=== PATIENT | female | born 1980 | race Caucasian/White ===

== ENCOUNTER 2017-01-17 08:48 | Emergency (ER) | payer OTHER ==
[~2017-01-17] VITALS: Ht 162.5 cm; Wt 59.0 kg
[~2017-01-17 08:48] MED LIST: ADVAIR DISKUS 11 DSK INH; AMOXICILLIN500 M2 PO; AMOXICILLIN500 MG PO; ANAPROX DS550 MG PO; ATARAX,VISTARIL50 MG PO; AUGMENTIN 875 M1 TAB PO; AUGMENTIN 875875 MG PO; BACTRIM DS 8001 TA1 PO; CARBIDOPA/LEVOD1 TA1 PO; CEPHALEXIN500 MG PO; CIPRO500 MG PO; CIPROFLOXACIN500 MG PO; CLARITIN10 MG PO; DARVOCET N 1001 TAB PO; DAYPRO600 M1 PO; DIFLUCAN150 MG PO; FLEXERIL10 MG PO; FLOMAX0.4 MG PO; FLONASE 0.05% 121 EA NAS; HYDROCODONE BIT1 T11 PO; KEFLEX500 MG PO; KENALOG 0.025%15 GM PO; MOTRIN800 MG PO; NAPROSYN250 MG; NAPROSYN500 MG PO; NKHM; NO DAILY MEDS; NORFLEX100 MG PO; PERCOCET 325 MG1 TA2 PO; PERCOCET 325 MG1 TA5 PO; PREDNICOT20 MG PO; PRILOSEC10 MG; PRILOSEC20 M1 PO; PROAIR HFA0.09 MG/AC INH; PROVENTIL0.09 MG/AC IH; PYRIDIUM200 MG PO; ROBAXIN750 MG PO; SYMBICORT1 AE1 INH; ULTRAM50 MG PO; VENTOLIN H0.09 MG/AC INH; VIBRA-TAB100 MG PO; VICODIN 5/500 505 MG; VICODIN 5/500 505 MG PO; VICODIN 500 MG-1 TAB PO; ZOFRAN ODT4 MG SL; ZOFRAN4 MG PO; ZYRTEC10 M2 PO
[2017-01-17 09:09] VITALS: BP 115/72
== END 2017-01-17 11:03 | disposition home or self-care (01) ==
LOC: ED 08:48
DX: F41.9 Anxiety disorder, unspecified (principal); F17.200 Nicotine dependence, unspecified, uncomplicated; K21.9 Gastro-esophageal reflux disease without esophagitis; J45.909 Unspecified asthma, uncomplicated; G40.909 Epilepsy, unspecified, not intractable, without status epilepticus; Z90.49 Acquired absence of other specified parts of digestive tract; Z98.51 Tubal ligation status; Z87.442 Personal history of urinary calculi

== ENCOUNTER 2017-03-14 05:07 | Emergency (ER) | payer OTHER ==
[~2017-03-14] VITALS: Ht 162.5 cm; Wt 54.4 kg
[2017-03-14 05:07] VITALS: BP 124/76
[2017-03-14 05:48] LABS: BASO % 0.5 % (0.0-1.0); EOS # 0.1 10*3/uL (0.0-0.4); EOS % 1.8 % (1.0-4.0); HEMATOCRIT 35.9 % (37.0-47.0); HEMOGLOBIN 11.9 g/dl (12.0-16.0); LYMPH # 1.5 10*3/uL (1.3-4.4); LYMPH % 23.3 % (27.0-41.0); MEAN CORPUSCULAR HGB 31.2 pg (27.0-31.0); MEAN CORPUSCULAR HGB CONC 33.1 g/dl (33.0-37.0); MEAN PLATELET VOLUME 9.3 fl (9.6-12.3); MONO # 0.4 10*3/uL (0.1-1.0); MONO % 5.9 % (3.0-9.0); NEUT # 4.4 10*3/uL (2.3-7.9); NEUT % 68.2 % (47.0-73.0); PLATELET COUNT AUTOMATED 262 10*3/uL (130-400); RED BLOOD COUNT 3.82 10*6/uL (4.10-5.10); RED CELL DISTRI WIDTH 13.6 % (0-14.5); WHITE BLOOD COUNT 6.5 10*3/uL (4.8-10.8)
[2017-03-14 06:01] LABS: BILIRUBIN NEGATIVE (NEGATIVE); BLOOD 3+ (NEGATIVE); CLARITY SL CLOUDY (CLEAR); COLOR YELLOW (YELLOW); GLUCOSE NEGATIVE (NEGATIVE); KETONE NEGATIVE (NEGATIVE); LEUKO ESTERASE NEGATIVE (NEGATIVE); NITRITE NEGATIVE (NEGATIVE); PH 5.5 (5.0-9.0); PROTEIN NEGATIVE (NEGATIVE); SPECIFIC GRAVITY 1.025 (1.005-1.030); UROBILINOGEN 0.2 E.U./dl (0.2-1.0)
[2017-03-14 06:04] LABS: ALBUMIN 3.5 gm/dl (3.1-4.5); ALKALINE PHOSPHATASE 81 U/L (45-117); BILIRUBIN, TOTAL 0.2 mg/dl (0.2-1.0); BUN 14 mg/dl (7-24); CARBON DIOXIDE 27 mmol/L (21-32); CHLORIDE 110 mmol/L (98-107); EST GLOM FILT AFRICAN AMERICAN > 60 ml/min; GLUCOSE 94 mg/dL (65-99); SGOT/AST 9 IU/L (3-35); SGPT/ALT 14 U/L (12-78); SODIUM 143 mmol/L (136-145); TOTAL PROTEIN 6.4 gm/dL (6.4-8.2)
[2017-03-14 06:17] LABS: URINE REFLEX COMMENT YES (NO)
[2017-03-14] MEDS ORDERED: Zofran4 MG PO (06:19)
[2017-03-14] MEDS ORDERED: GOOD NEIGHBOR M25 M1 PO (06:19)
== END 2017-03-14 06:29 | disposition home or self-care (01) ==
LOC: ED 05:07
PROVIDERS: Student in an Organized Health Care Education/Training Program
DX: R42 Dizziness and giddiness (principal); F17.200 Nicotine dependence, unspecified, uncomplicated; K21.9 Gastro-esophageal reflux disease without esophagitis; G40.909 Epilepsy, unspecified, not intractable, without status epilepticus; J45.909 Unspecified asthma, uncomplicated; Z90.49 Acquired absence of other specified parts of digestive tract; Z98.51 Tubal ligation status; Z87.442 Personal history of urinary calculi

== ENCOUNTER 2017-05-15 12:11 | Emergency (ER) | payer OTHER ==
[~2017-05-15] VITALS: Ht 162.5 cm; Wt 58.1 kg
[~2017-05-15 12:11] MED LIST changes: +GOOD NEIGHBOR M25 M1 PO; +Zofran4 MG PO
[2017-05-15 12:25] VITALS: BP 123/79
[2017-05-15] MEDS ORDERED: PROVENTIL HFA6.7 GM INH (12:33)
[2017-05-15] MEDS ORDERED: PREDNISONE50 MG PO (12:33)
== END 2017-05-15 12:43 | disposition home or self-care (01) ==
LOC: ED 12:11
DX: S66.912A Strain of unspecified muscle, fascia and tendon at wrist and hand level, left hand, initial encounter (principal); J40 Bronchitis, not specified as acute or chronic; J45.909 Unspecified asthma, uncomplicated; F17.200 Nicotine dependence, unspecified, uncomplicated; X58.XXXA Exposure to other specified factors, initial encounter; Y93.89 Activity, other specified; Y92.89 Other specified places as the place of occurrence of the external cause; Y99.8 Other external cause status

== ENCOUNTER 2018-01-28 06:05 | Emergency (ER) | payer SELFPAY ==
[~2018-01-28] VITALS: Ht 162.5 cm; Wt 61.2 kg
[~2018-01-28 06:05] MED LIST changes: +PREDNISONE50 MG PO; +PROVENTIL HFA6.7 GM INH
[2018-01-28 06:09] VITALS: BP 121/81
[2018-01-28] MEDS ORDERED: PREDNISONE50 MG PO (06:22)
[2018-01-28] MEDS ORDERED: PANTOPRAZOLE SO20 MG PO (06:22)
== END 2018-01-28 06:41 | disposition home or self-care (01) ==
LOC: ED 06:05
DX: T78.40XA Allergy, unspecified, initial encounter (principal); R09.89 Other specified symptoms and signs involving the circulatory and respiratory systems; F17.200 Nicotine dependence, unspecified, uncomplicated; K21.9 Gastro-esophageal reflux disease without esophagitis; F11.10 Opioid abuse, uncomplicated; J45.909 Unspecified asthma, uncomplicated; G40.909 Epilepsy, unspecified, not intractable, without status epilepticus; Z98.51 Tubal ligation status; Z90.49 Acquired absence of other specified parts of digestive tract; Y92.9 Unspecified place or not applicable

== ENCOUNTER 2019-09-21 12:21 | Emergency (ER) | payer OTHER ==
[~2019-09-21] VITALS: Ht 162.5 cm; Wt 56.7 kg
[~2019-09-21 12:21] MED LIST changes: +PANTOPRAZOLE SO20 MG PO
[2019-09-21 12:30] VITALS: BP 125/86
[2019-09-21] MEDS ORDERED: DOXYCYCLINE100 M3 PO (13:43)
== END 2019-09-21 13:48 | disposition home or self-care (01) ==
LOC: ED 12:21
DX: S00.36XA Insect bite (nonvenomous) of nose, initial encounter (principal); S50.861A Insect bite (nonvenomous) of right forearm, initial encounter; J34.0 Abscess, furuncle and carbuncle of nose; K21.9 Gastro-esophageal reflux disease without esophagitis; G40.909 Epilepsy, unspecified, not intractable, without status epilepticus; J44.9 Chronic obstructive pulmonary disease, unspecified; Z87.891 Personal history of nicotine dependence; Z79.899 Other long term (current) drug therapy; Z90.49 Acquired absence of other specified parts of digestive tract; W57.XXXA Bitten or stung by nonvenomous insect and other nonvenomous arthropods, initial encounter; Y93.89 Activity, other specified; Y92.89 Other specified places as the place of occurrence of the external cause; Y99.8 Other external cause status

== ENCOUNTER 2020-05-14 16:11 | Emergency (ER) | payer OTHER ==
[~2020-05-14 16:11] MED LIST changes: +DOXYCYCLINE100 M3 PO
[2020-05-14 16:20] VITALS: BP 120/72
[2020-05-14 17:17] LABS: BASO # 0.1 10*3/uL (0.0-0.1); BASO % 0.4 % (0.0-1.0); EOS # 0.2 10*3/uL (0.0-0.4); EOS % 1.9 % (1.0-4.0); HEMATOCRIT 39.8 % (37.0-47.0); LYMPH # 1.4 10*3/uL (1.3-4.4); LYMPH % 12.2 % (27.0-41.0); MEAN CELL VOLUME 89.6 fl (81.0-99.0); MEAN CORPUSCULAR HGB 29.5 pg (27.0-31.0); MEAN CORPUSCULAR HGB CONC 32.9 g/dl (33.0-37.0); MONO # 0.7 10*3/uL (0.1-1.0); MONO % 6.2 % (3.0-9.0); NEUT # 9.2 10*3/uL (2.3-7.9); PLATELET COUNT AUTOMATED 298 10*3/uL (130-400); RED BLOOD COUNT 4.44 10*6/uL (4.10-5.10); RED CELL DISTRI WIDTH 14.5 % (0-14.5); WHITE BLOOD COUNT 11.6 10*3/uL (4.8-10.8)
[2020-05-14 17:38] LABS: ALBUMIN 3.4 gm/dl (3.1-4.5); ALKALINE PHOSPHATASE 91 U/L (45-117); BUN 8 mg/dl (7-24); CHLORIDE 111 mmol/L (98-107); CREATININE 0.82 mg/dL (0.55-1.02); POTASSIUM 3.3 mmol/L (3.5-5.1); SGOT/AST 11 IU/L (3-35); SGPT/ALT 15 U/L (12-78); SODIUM 139 mmol/L (136-145); TOTAL PROTEIN 6.9 gm/dL (6.4-8.2)
[2020-05-14] MEDS ORDERED: PROVENTIL HFA6.7 GM INH (18:09)
[2020-05-14] MEDS ORDERED: ROBITUSSIN DM 101 OZ PO (18:09)
[2020-05-14] MEDS ORDERED: AUGMENTIN 875-875 MG PO (18:09)
== END 2020-05-14 18:12 | disposition home or self-care (01) ==
LOC: ED 16:11
PROVIDERS: Nurse Practitioner Family
DX: J20.9 Acute bronchitis, unspecified (principal); R56.9 Unspecified convulsions; J44.9 Chronic obstructive pulmonary disease, unspecified; Z79.899 Other long term (current) drug therapy

== ENCOUNTER → 2020-09-15 | Outpatient (CLI) | payer OTHER ==
[~2020-09-15] MED LIST changes: +AUGMENTIN 875-875 MG PO; +ROBITUSSIN DM 101 OZ PO
== END | disposition home or self-care (01) ==
LOC: COVID19 14:01
PROVIDERS: ATTEND Student in an Organized Health Care Education/Training Program
DX: Z20.822 Contact with and (suspected) exposure to COVID-19 (principal)

== ENCOUNTER 2021-03-06 15:50 | Emergency (ER) | payer SELFPAY ==
[~2021-03-06] VITALS: Ht 162.5 cm; Wt 56.7 kg
[2021-03-06 17:06] LABS: BASO % 0.6 % (0.0-1.0); EOS # 0.1 10*3/uL (0.0-0.4); EOS % 1.8 % (1.0-4.0); HEMATOCRIT 44.3 % (37.0-47.0); LYMPH # 2.2 10*3/uL (1.3-4.4); LYMPH % 30.6 % (27.0-41.0); MEAN CELL VOLUME 89.3 fl (81.0-99.0); MEAN CORPUSCULAR HGB 29.8 pg (27.0-31.0); MEAN CORPUSCULAR HGB CONC 33.4 g/dl (33.0-37.0); MEAN PLATELET VOLUME 9.8 fl (9.6-12.3); MONO # 0.7 10*3/uL (0.1-1.0); MONO % 9.7 % (3.0-9.0); NEUT # 4.1 10*3/uL (2.3-7.9); PLATELET COUNT AUTOMATED 304 10*3/uL (130-400); RED BLOOD COUNT 4.96 10*6/uL (4.10-5.10); RED CELL DISTRI WIDTH 14.1 % (0-14.5); WHITE BLOOD COUNT 7.2 10*3/uL (4.8-10.8)
[2021-03-06 17:22] LABS: ALBUMIN 3.9 gm/dl (3.1-4.5); ALKALINE PHOSPHATASE 89 U/L (45-117); BUN 18 mg/dl (7-24); CHLORIDE 111 mmol/L (98-107); CREATININE 1.21 mg/dL (0.55-1.02); POTASSIUM 4.1 mmol/L (3.5-5.1); SGOT/AST 6 IU/L (3-35); SGPT/ALT 19 U/L (12-78); SODIUM 139 mmol/L (136-145); TOTAL PROTEIN 7.2 gm/dL (6.4-8.2)
[2021-03-06 17:24] LABS: B-hCG (QUALITATIVE) NEGATIVE (NEGATIVE)
[2021-03-06 18:27] VITALS: BP 122/78
[2021-03-06 19:13] LABS: BILIRUBIN Negative (Negative); BLOOD 3+ (Negative); CLARITY Turbid (Clear); COLOR Dark Yellow (Yellow); GLUCOSE Negative (Negative); KETONE 1+ (Negative); LEUKO ESTERASE Trace (Negative); NITRITE Negative (Negative); SPECIFIC GRAVITY >= 1.030 (1.001-1.030)
[2021-03-06 19:41] LABS: BACTERIA 1+; CALCIUM OXALATE CRYSTALS 1+; MUCOUS 1+; RBC TNTC rbc/hpf (0-2)
[2021-03-06] MEDS ORDERED: ZOFRAN4 MG PO (20:02)
[2021-03-06] MEDS ORDERED: Motrin,Rufen800 MG PO (20:02)
[2021-03-06] MEDS ORDERED: HYDROCODONE-AC1 EAC1 PO (20:02)
[2021-03-06] MEDS ORDERED: FLOMAX0.4 MG PO ×2 (20:02→20:06)
== END 2021-03-06 20:27 | disposition home or self-care (01) ==
LOC: ED 15:50
PROVIDERS: Physician Assistant
DX: N13.2 Hydronephrosis with renal and ureteral calculous obstruction (principal); F17.200 Nicotine dependence, unspecified, uncomplicated; Z87.442 Personal history of urinary calculi; Z90.49 Acquired absence of other specified parts of digestive tract; Z98.51 Tubal ligation status